=== PATIENT | male | born 1965 | race Hispanic/Latino ===

== ENCOUNTER 2022-09-20 09:30 | Emergency (ER) | payer BC, SELFPAY ==
--- NOTE | ~2022-09-20 | CT_ITS ---
EXAMINATION: CT BRAIN W/O DATE: 09/20/2022 12:04 INDICATION: New onset of occipital headache. TECHNIQUE: Computed tomography (CT) of the head was performed without intravenous contrast. The dose- length product was 529.67 mGy-cm. Automated exposure control and iterative reconstruction technique w ere employed. COMPARISON: No prior studies for comparison. FINDINGS: Normal brain parenchymal volume is decreased for age. Normal arteaga-white differentiation. No acute intracranial hemorrhage, infarction, mass or mass effect. No ventriculomegaly or midline shift. Midline sagittal images demonstrate a normal corpus callosum, c raniovertebral junction and sella turcica. Basilar cisterns are patent. There is mild mucosal thickening of the paranasal sinuses. Mastoids are pneumatized. IMPRESSION: 1. No acute intracranial abnormality. Reviewed, dictated and finalized at location B. [facility] [employer]
[2022-09-20 09:40] VITALS: BP 146/89; PULSE 70; RESP 16; TEMP 36.6; O2SAT 100
[2022-09-20 11:02] VITALS: BP 138/90; PULSE 76; RESP 16; O2SAT 98
--- NOTE | 2022-09-20 11:26 | ED.HA ---
HPI - Headache General Chief Complaint: Headache Stated Complaint: headache, High bp Time Seen by Provider: 09/20/22 11:15 History of Present Illness HPI Narrative: Patient is a 57-year-old male here for evaluation of intermittent occipital headaches for the past 3 days. Patient states the headaches come on gradually when they develop. Patient denies history of previous similar sensation. He has been taking aspirin with good relief of his headaches. Patient expresses concern because he was told in the past that he has elevated blood pressure and is worried that these headaches are a manifestation of elevated blood pressure. He denies any unilateral weakness, fevers, chills, chest pain, shortness of breath, confusion. Related Data Allergies Allergy/AdvReac Type Severity Reaction Status Date / Time No Known Allergies Allergy Verified 09/20/22 11:01 Review of Systems Review of Systems: Gen.: Denies fevers or chills Eyes: Denies eye pain or visual change ENT: Denies congestion Respiratory: Denies shortness of breath or cough CV: Denies chest pain or palpitations GI: Denies abdominal pain nausea, emesis or diarrhea denies burning, urgency, frequency or hematuria Musculoskeletal: Denies back pain or muscle pain Neuro: Reports headache. Denies numbness, tingling, weakness or focal weakness Skin: Denies rash Except as documented, all other systems reviewed and negative Exam Narrative: APPEARANCE: Well appearing, no pain in distress, well-nourished. Head: Normocephalic and atraumatic. EYES: PERRLA/EOMI, conjunctivae clear NOSE: No nasal drainage EARS: External ear normal in appearance THROAT: Oropharynx is clear. Mucous membranes are moist. NECK: Supple. No adenopathy, no masses. RESPIRATORY: Airway patent, respirations nonlabored. Clear to auscultation bilaterally, no rales, rhonchi, wheezing. CARDIOVASCULAR: Regular rate and rhythm without murmurs, rubs, or gallops. ABDOMINAL: Normoactive bowel sounds. Soft, nontender, nondistended. No rebound tenderness or guarding. MUSCULOSKELETAL: Extremities are warm and well-perfused. Moves all extremities well. No edema. NEURO: Cranial nerves II through XII intact. [id number] normal. Prick Stitcher strength equal. Normal speech. SKIN: Skin is warm and dry. No rashes. PSYCHIATRIC: Normal affect/mood. Course Vital Signs Vital signs: Vital Signs Temperature 97.9 F 09/20/22 09:40 Pulse Rate 70 09/20/22 09:40 Respiratory Rate 16 09/20/22 09:40 Blood Pressure 146/89 H 09/20/22 09:40 Pulse Oximetry 100 09/20/22 09:40 Oxygen Delivery Room Air 09/20/22 09:40 Temperature 97.9 F 09/20/22 09:40 Pulse Rate 80 09/20/22 12:53 Respiratory Rate 12 09/20/22 12:53 Blood Pressure 132/90 09/20/22 12:53 Pulse Oximetry 98 09/20/22 12:53 Oxygen Delivery Room Air 09/20/22 09:40 MDM - Headache MDM Narrative Medical decision making narrative: Patient is a 57-year-old male here for evaluation of intermittent posterior headaches for the past several days that resolved after taking aspirin. He is nontoxic-appearing and has normal vital signs, patient was concerned over his blood pressure but his BP is 146/89 upon arrival, decreased to 132/90 without intervention. He has no evidence of endorgan damage on the work-up. His CT brain is normal. He has no headache red flags; not consistent with subarachnoid hemorrhage, ICH, temporal arteritis, carotid artery dissection, no signs of intracranial pressure. Likely tension type headache. He is currently symptom-free and declines any medicine in the ED. Patient lives in [place], encouraged him to find a primary care provider in the area for follow-up and further management. He was given return precautions and he voiced understanding. Lab Data Result diagrams: 09/20/22 11:48 09/20/22 11:48 Labs: Lab Results 09/20/22 09/20/22 09/20/22 Range/Units 11:48 11:48 12:35 WBC 6.0 (4.5-10.0
[2022-09-20 11:56] LABS: Basophils Percent Auto 0.7 % (0.2-1.2); Eosinophils Absolute Auto 0.3 K/mm3 (0-0.3); Eosinophils Percent Auto 4.2 % (0-4.4); Hematocrit 44.2 % (42.0-52.0); Hemoglobin 14.5 g/dL (14.0-18.0); Immature Granulocyte Absolute 0.01 K/mm3 (0.00-0.031); Immature Granulocyte Percent A 0.2 % (0-0.5); Lymphocytes Absolute Auto 1.97 K/mm3 (0.9-3.2); Lymphocytes Percent Auto 32.8 % (18.3-44.2); Mean Corpuscular HGB Conc 32.8 g/dl (32-36); Mean Corpuscular Hemoglobin 30.8 pg (26-34); Mean Corpuscular Volume 93.8 fl (80-100); Mean Platelet Volume 10.2 fl (7.4-10.4); Monocytes Absolute Auto 0.5 K/mm3 (0.1-0.6); Monocytes Percent Auto 8.3 % (2.6-8.5); Neutrophils Absolute Auto 3.2 K/mm3 (1.3-6.7); Neutrophils Percent Auto 53.8 % (45.5-73.1); Platelet Count Result 203 k/mm3 (150-375); Red Blood Count 4.71 M/mm3 (4.6-6.20); Red Cell Distribution Width 12.8 % (11.5-14.5)
[2022-09-20 12:05] LABS: Alanine Aminotransferase 56 U/L (6-50); Albumin Level 4.4 g/dL (3.5-5.1); Alkaline Phosphatase 81 U/L (38-126); Anion Gap 8 mmol/L (8-16); Aspartate Amino Transferase 35 U/L (17-59); Bilirubin,Total 0.9 mg/dL (0.2-1.3); Blood Urea Nitrogen 18 mg/dL (9-20); Calcium 9.1 mg/dL (8.4-10.2); Carbon Dioxide 27 mmol/L (22-30); Chloride 103 mmol/L (98-107); Estimated CRCL calculation 85 ml/min; Estimated Glomerular Filt Rate > 60; Glucose 109 mg/dL (65-110); Potassium 4.2 mmol/L (3.4-5.0); Sodium 138 mmol/L (137-145)
[2022-09-20 12:46] LABS: Appearance Urine Clear (Clear); Bilirubin Urine Negative (Negative); Blood Urine Negative (Negative); Color Urine Yellow (Yellow); Glucose Urine UA Negative (Negative); Ketones Urine Negative (Negative); Leukocyte Esterase Ur Negative LEU/UL (Negative); Nitrate Urine Negative (Negative); Protein Urine Negative (Negative); Specific Grav Ur 1.015 (1.001-1.035); Urobilinogen Urine 0.2 mg/dL (<2.0)
[2022-09-20 12:53] VITALS: BP 132/90; PULSE 80; RESP 12; O2SAT 98
[2022-09-20 12:54] LABS: Add Urine Microscopic? NO
== END 2022-09-20 13:06 | disposition home or self-care (01) ==
PROVIDERS: Physician Assistant; Emergency Provider Emergency Medicine
DX: G44.209 Tension-type headache, unspecified, not intractable (principal)
CPT/HCPCS: 36415; 70450; 80053; 81003; 85025; 99284